=== PATIENT | male | born 1965 | race Hispanic/Latino ===

== ENCOUNTER 2025-02-19 09:24 | Outpatient (CLI) | payer OTHER | END 2025-02-19 09:25 | disposition home or self-care (01) | LOC: CSHWCC 09:24 | PROVIDERS: ATTEND Nurse Practitioner Family | DX: L97.422 Non-pressure chronic ulcer of left heel and midfoot with fat layer exposed (principal); G90.09 Other idiopathic peripheral autonomic neuropathy | CPT/HCPCS: 11042; 99214; G0463 ==

== ENCOUNTER 2025-02-22 08:15 | Day surgery (SDC) | payer OTHER ==
[2025-02-22] MEDS ORDERED: PROPOFOL 40 ML ONE (09:43)
[2025-02-22] MEDS ORDERED: PROPOFOL 20 ML ONE ×2 (10:31→10:53)
[2025-02-22] MEDS ORDERED: HYDROcodone/Acetaminophen 5/325 mg Tablet ONE (12:11)
[2025-02-22] MEDS ORDERED: Ondansetron PF 4 MG/2 ML Vial ONE (13:19)
== END 2025-02-22 14:00 | disposition home or self-care (01) ==
LOC: CSHSDC 08:15
PROVIDERS: ATTEND Surgery
DX: C7A.1 Malignant poorly differentiated neuroendocrine tumors (principal); D12.2 Benign neoplasm of ascending colon; D12.3 Benign neoplasm of transverse colon; D12.5 Benign neoplasm of sigmoid colon; I10 Essential (primary) hypertension; E11.9 Type 2 diabetes mellitus without complications; Z87.891 Personal history of nicotine dependence; Z79.899 Other long term (current) drug therapy
CPT/HCPCS: 88305; 88341; 88342; J2250; J2405; J2704

== ENCOUNTER 2025-03-14 14:57 | Outpatient (CLI) | payer OTHER | END 2025-03-14 14:58 | disposition home or self-care (01) | LOC: CSHWCC 14:57 | PROVIDERS: ATTEND Nurse Practitioner Family | DX: L97.422 Non-pressure chronic ulcer of left heel and midfoot with fat layer exposed (principal); G90.09 Other idiopathic peripheral autonomic neuropathy; M21.6X2 Other acquired deformities of left foot | CPT/HCPCS: 11042 ==

== ENCOUNTER 2025-03-20 14:55 | Outpatient (CLI) | payer OTHER | END 2025-03-20 14:56 | disposition home or self-care (01) | LOC: CSHWCC 14:55 | PROVIDERS: ATTEND Nurse Practitioner Family | DX: L97.422 Non-pressure chronic ulcer of left heel and midfoot with fat layer exposed (principal); G90.09 Other idiopathic peripheral autonomic neuropathy; M21.6X2 Other acquired deformities of left foot | CPT/HCPCS: 11042 ==

== ENCOUNTER 2025-03-27 15:03 | Outpatient (CLI) | payer OTHER | END 2025-03-27 15:04 | disposition home or self-care (01) | LOC: CSHWCC 15:03 | PROVIDERS: ATTEND Nurse Practitioner Family | DX: L97.422 Non-pressure chronic ulcer of left heel and midfoot with fat layer exposed (principal); G90.09 Other idiopathic peripheral autonomic neuropathy; M21.6X2 Other acquired deformities of left foot | CPT/HCPCS: 11042; 99213; G0463 ==

== ENCOUNTER 2025-04-03 15:12 | Outpatient (CLI) | payer OTHER | END 2025-04-03 15:13 | disposition home or self-care (01) | LOC: CSHWCC 15:12 | PROVIDERS: ATTEND Nurse Practitioner Family | DX: L97.422 Non-pressure chronic ulcer of left heel and midfoot with fat layer exposed (principal); G90.09 Other idiopathic peripheral autonomic neuropathy; M21.6X2 Other acquired deformities of left foot | CPT/HCPCS: 11042 ==

== ENCOUNTER 2025-04-09 15:16 | Outpatient (CLI) | payer OTHER | END 2025-04-09 15:17 | disposition home or self-care (01) | LOC: CSHWCC 15:16 | PROVIDERS: ATTEND Nurse Practitioner Family | DX: L97.422 Non-pressure chronic ulcer of left heel and midfoot with fat layer exposed (principal); M21.6X2 Other acquired deformities of left foot; G90.09 Other idiopathic peripheral autonomic neuropathy | CPT/HCPCS: 11042 ==

== ENCOUNTER 2025-04-26 13:54 | Outpatient (CLI) | payer OTHER ==
[2025-04-26 15:01] LABS: Hematocrit 50.7 % (38.8-50.0); Hemoglobin 16.6 g/dL (13.5-17.5); Mean Corpuscular Hemoglobin 28.7 pg (27.0-33.0); Mean Corpuscular Volume 87.6 fL (81.2-95.1); Platelet Count 266 10x3/uL (150-450); Red Blood Cell (RBC) Count 5.79 10x6/uL (4.32-5.72); White Blood Cell (WBC) Count 5.85 10x3/uL (3.5-10.5)
[2025-04-26 15:50] LABS: Anion Gap 15 mmol/L (10-20); BUN (Urea Nitrogen) 17 mg/dL (8.4-25.7); Calc. Creatinine Clearance 0 mL/min (70-130); Calcium 9.6 mg/dL (7.8-10.44); Carbon Dioxide 23 mmol/L (22-29); Chloride 104 mmol/L (98-107); Glucose 98 mg/dL (70-105); Potassium 4.6 mmol/L (3.5-5.1); Sodium 137 mmol/L (136-145)
== END 2025-04-26 13:55 | disposition home or self-care (01) ==
LOC: CSHLAB 13:54
PROVIDERS: ATTEND Surgery
DX: Z01.818 Encounter for other preprocedural examination (principal)
CPT/HCPCS: 80048; 85027; 93005; 93010

== ENCOUNTER 2025-04-29 05:46 | Day surgery (SDC) | payer OTHER ==
[2025-04-26 14:16] VITALS: BMI 31.0
[2025-04-29] MEDS ORDERED: PROPOFOL 40 ML ONE (06:34)
[2025-04-29] MEDS ORDERED: Ondansetron PF 4 MG/2 ML Vial ONE (06:34)
[2025-04-29] MEDS ORDERED: Lidocaine 1% PF 5 ML VIAL ONE (06:34)
[2025-04-29] MEDS ORDERED: Bupivacaine HCl 0.5%/Epinephrine 1:200,000/PF 30 ml Vial ONE (06:51)
[2025-04-29] MEDS ORDERED: CEFAZOLIN 2 GM VIAL ONE (06:52)
[2025-04-29] MEDS ORDERED: PHENYLEPHRINE-NS 100 MCG/ML 10 ML SYRINGE ONE (07:36)
[2025-04-29] MEDS ORDERED: Sevoflurane 250 ML INH ANEST BOTTLE ONE (12:09)
== END 2025-04-29 08:55 | disposition home or self-care (01) ==
LOC: CSHSDC 05:46
PROVIDERS: ATTEND Surgery
PROC: 0JH60WZ Insertion of Totally Implantable Vascular Access Device into Chest Subcutaneous Tissue and Fascia, Open Approach (ICD-10-PCS; principal; 2025-04-29)
DX: C20 Malignant neoplasm of rectum (principal); I10 Essential (primary) hypertension; E11.9 Type 2 diabetes mellitus without complications; E55.9 Vitamin D deficiency, unspecified; Z87.891 Personal history of nicotine dependence; Z79.899 Other long term (current) drug therapy
CPT/HCPCS: 71045; A6258; C1788; J1100; J1642; J2405; J2704; J3010